=== PATIENT | female | born 1970 | race Caucasian/White ===

== ENCOUNTER → 2016-06-17 | Outpatient (CLI) | payer BC ==
[~2016-06-17] MED LIST: CYAN1000P SQ; MULT-120 PO; OMEP10CA PO; POTA75TA2 OR; POTA75TA2 PO; PRIL10CA PO; PRIN20TA2 PO; TAB-TAB PO; VITA100018 OR; VITA100020 IJ; VITA100064 PO
[2016-06-17 12:54] LABS: HEMATOCRIT 36.3 % (35.0-46.0); MEAN CELL VOLUME 84.2 FL (80.0-100.0); MEAN CORPUSCULAR HEMOGLOBIN 28.6 PG (27.0-34.0); MEAN CORPUSCULAR HGB CONC 33.9 % (32.0-36.0); PLATELET COUNT 274 TH/MM3 (150-450); RED BLOOD COUNT 4.31 MIL/MM3 (4.00-5.30); RED CELL DISTRIBUTION WIDTH 12.3 % (11.6-17.2); REVIEW FLAG FINAL; WHITE BLOOD COUNT 8.6 TH/MM3 (4.0-11.0)
[2016-06-17 12:55] LABS: BLOOD, URINE NEG (NEG); GLUCOSE,URINE NEG (NEG); KETONE, URINE NEG (NEG); NITRITE,URINE NEG (NEG)
[2016-06-17 13:01] LABS: METHOD OF COLLECTION CLEAN CATCH; URINE COLOR YELLOW (YELLW/STRAW)
[2016-06-17 13:02] LABS: COMMENT (UR) CULT NOT INDICATED; CULTURE IF INDICATED CULT NOT INDICATED; RBC, URINE 0-3 /hpf (0-3); SQUAMOUS EPITHELIAL CELL URINE 0-5 /hpf (0-5)
== END ==
LOC: PHPRE 12:05
PROVIDERS: ATTEND Obstetrics & Gynecology
DX: Z01.812 Encounter for preprocedural laboratory examination (principal); N92.1 Excessive and frequent menstruation with irregular cycle; N32.81 Overactive bladder
CPT/HCPCS: 36415; 81001; 85027

== ENCOUNTER 2016-06-22 06:23 | Inpatient (IN) | payer BC ==
[~2016-06-22] VITALS: Ht 165.1 cm; Wt 124.8 kg
[~2016-06-22 06:23] MED LIST changes: -POTA75TA2 OR; -PRIL10CA PO; -TAB-TAB PO; -VITA100018 OR; -VITA100020 IJ
[2016-06-22] MEDS ORDERED: BUPIVACAINE HCL PF 0.25% 30 ML VIAL ONE (07:03)
[2016-06-22] MEDS ORDERED: ESTROGENS CONJUGATED VAG CREA 15 APPL/30 GM TUBE ONE (07:03)
[2016-06-22] MEDS ORDERED: ceFAZolin INJ 1,000 MG VIAL ONE ×2 (07:22→09:05)
[2016-06-22 08:09] VITALS: PULSE 78; RESP 18; TEMP 98; O2SAT 98
[2016-06-22] MEDS ORDERED: MIDAZOLAM HCL 2 MG/2 ML VIAL ONE (09:04)
[2016-06-22] MEDS ORDERED: SODIUM CHLORIDE 0.9% INJ 50 ML ONE (09:05)
[2016-06-22] MEDS ORDERED: METOCLOPRAMIDE HCL 10 MG/2 ML VIAL ONE (09:05)
[2016-06-22] MEDS ORDERED: FAMOTIDINE 20 MG/2 ML VIAL ONE (09:05)
[2016-06-22] MEDS ORDERED: DEXAMETHASONE SOD PHOS 4 MG/ML VIAL ONE (09:05)
[2016-06-22] MEDS ORDERED: LACTATED RINGER'S 1000 ML INJ 1,000 ML ONE (09:20)
[2016-06-22] MEDS ORDERED: ACETAMINOPHEN 1000 MG/100 ML VIAL IV ONE (09:59)
[2016-06-22] MEDS ORDERED: PROPOFOL 200 MG/20 ML AMP IV ONE (10:29)
[2016-06-22] MEDS ORDERED: ONDANSETRON HCL 4 MG/2 ML VIAL IV PUSH ONE (10:29)
[2016-06-22] MEDS ORDERED: LACTATED RINGER'S 1000 ML INJ 2,000 ML IV ONE (10:29)
[2016-06-22] MEDS ORDERED: ePHEDrine/NS 25 MG/5 ML SYR IV ONE (10:29)
[2016-06-22] MEDS ORDERED: PHENYLEPH/NS 1000 MCG/10 ML SYR IV ONE (10:29)
[2016-06-22] MEDS ORDERED: NEOSTIGMINE 3 MG/3 ML SYR IV ONE (10:29)
[2016-06-22] MEDS ORDERED: SUGAMMADEX SODIUM 200 MG/2 ML VIAL IV PUSH ONE ×2 (12:14)
[2016-06-22] MEDS ORDERED: fentaNYL CITRATE 250 MCG/5 ML AMP ONE ×2 (12:27→12:28)
[2016-06-22] MEDS ORDERED: MORPHINE SULFATE 4 MG/ML INJ ONE (12:29)
[2016-06-22] MEDS ORDERED: SODIUM CHLORIDE 0.9% 20 ML VIAL ONE ×2 (12:52)
[2016-06-22 14:08] VITALS: PULSE 117
[2016-06-22] MEDS ORDERED: MORPHINE SULFATE 10 MG/ML INJ ONE (14:09)
--- NOTE | 2016-06-22 14:09 | RADHPO ---
EXAM DATE/TIME: 06/22/2016 13:54 [place] COMPARISON: No previous studies available for comparison. INDICATIONS : OR instrument count MEDICAL HISTORY : None. SURGICAL HISTORY : None. ENCOUNTER: Initial ACUITY: 1 day PAIN SCORE: Non-responsive. LOCATION: Bilateral Abdomen FINDINGS: Supine view of the abdomen was performed. The abdominal bowel gas pattern is normal. No abnormal ma sses, calcifications, or organomegaly is seen. No radiopaque instruments. However, there are raytech sponges or packing in the rectum or vagina. The osseous structures are unremarkable. CONCLUSION: 1. Raytech sponges/packing in the expected location of the rectal vault or vagina. 2. No radiopaque instruments. Nonobstructive bowel gas pattern. 3. Results were called to the OR at the time of this dictation. Erick Mccray MD on June 22, 2016 at 14:02 Board Certified Radiologist. This report was verified electronically.
[2016-06-22] MEDS ORDERED: KETOROLAC TROMETHAMINE 30 MG/ML (IVP) VIAL ONE (14:18)
[2016-06-22] MEDS ORDERED: *Lactated Ringer's INJ 1,000 ML ONE (14:20)
[2016-06-22] MEDS ORDERED: MORPHINE SULFATE 30 MG/30 ML PCA ONE (14:33)
[2016-06-22 15:00] VITALS: PULSE 96
[2016-06-22] MEDS ORDERED: NALOXONE HCL 0.4 MG/ML AMP IV PRN (15:15)
[2016-06-22] MEDS ORDERED: MORPHINE SULFATE 30 MG/30 ML PCA IV SCH (15:15)
[2016-06-22] MEDS ORDERED: diphenhydrAMINE HCL 25 MG CAP PO PRN (15:15)
[2016-06-22] MEDS ORDERED: DO NOT ADM ANY ANTICOAGULANT DRUGS PRN (15:30)
[2016-06-22] MEDS ORDERED: ONDANSETRON HCL 4 MG/2 ML VIAL IM PRN (15:45)
[2016-06-22] MEDS: LACTATED RINGER'S 1000 ML INJ 1,000 ML IV SCH ×2 (16:00→22:02)
[2016-06-22 16:05] VITALS: BP 141/68; PULSE 99; RESP 20; TEMP 97.7; O2SAT 97
[2016-06-22 20:00] VITALS: BP 120/67; PULSE 95; RESP 18; RESP 20; TEMP 97.7; O2SAT 94
[2016-06-22] MEDS: PCA - TOTAL MG MORPHINE DELIVERED PER SHIFT SCH (22:00)
[2016-06-22] MEDS: KETOROLAC TROMETHAMINE 30 MG/ML (IVP) VIAL IV PUSH SCH (22:02)
[2016-06-23] VITALS (7 sets, daily range): BP systolic 102–142; BP diastolic 54–86; PULSE 78–94; RESP 18–20; TEMP 96.5–98.5; O2SAT 91–95
[2016-06-23] MEDS: PCA - TOTAL MG MORPHINE DELIVERED PER SHIFT SCH (06:00)
[2016-06-23] MEDS: KETOROLAC TROMETHAMINE 30 MG/ML (IVP) VIAL IV PUSH SCH ×3 (06:33→21:33)
[2016-06-23 07:06] LABS: HEMATOCRIT 28.8 % (35.0-46.0); REVIEW FLAG FINAL
[2016-06-23 07:07] LABS: CHLORIDE 103 MEQ/L (98-107); POTASSIUM 3.7 MEQ/L (3.5-5.1); SODIUM (NA) 139 MEQ/L (136-145)
[2016-06-23 07:13] LABS: ANION GAP 7 MEQ/L (5-15); BICARBONATE 28.7 MEQ/L (21.0-32.0); BLOOD UREA NITROGEN 7 MG/DL (7-18)
[2016-06-23 07:16] LABS: ALT (GPT) 14 U/L (10-53); AST (GOT) 13 U/L (15-37); GLOMERULAR FILTRATION RATE 88 ML/MIN (>89)
[2016-06-23 07:18] LABS: TOTAL BILIRUBIN ADULT 0.5 MG/DL (0.2-1.0)
[2016-06-23 07:19] LABS: ALKALINE PHOSPHATASE 79 U/L (45-117)
[2016-06-23] MEDS: LACTATED RINGER'S 1000 ML INJ 1,000 ML IV SCH ×2 (11:15→19:42)
[2016-06-23] MEDS: oxyCODONE/ACETAMINOPHEN 7.5 MG/325 MG TAB PO PRN ×2 (14:14→18:24)
[2016-06-24] VITALS: BP 124/76; PULSE 85; RESP 20; TEMP 98.4; O2SAT 95
[2016-06-24] MEDS: KETOROLAC TROMETHAMINE 30 MG/ML (IVP) VIAL IV PUSH SCH (06:16)
[2016-06-24] MEDS: LACTATED RINGER'S 1000 ML INJ 1,000 ML IV SCH (07:15)
[2016-06-24 08:00] VITALS: BP 140/76; PULSE 77; RESP 16; TEMP 96.9; O2SAT 97
--- NOTE | 2016-06-24 09:42 | HHI.DS ---
Discharge Summary Admission Date Jun 22, 2016 at 16:15 Admitting Diagnosis CBC/BMP: 06/23/16 0640 06/23/16 0640 Significant Findings Laboratory Tests Test 06/23/16 06:40 Hemoglobin 9.6 GM/DL (11.6-15.3) Hematocrit 28.8 % (35.0-46.0) Estimat Glomerular Filtration 88 ML/MIN (>89) Rate Calcium Level 7.8 MG/DL (8.5-10.1) Aspartate Amino Transf 13 U/L (15-37) (AST/SGOT) Total Protein 5.8 GM/DL (6.4-8.2) Albumin 2.5 GM/DL (3.4-5.0) Pt Condition on Discharge: Good Discharge Disposition: Discharge Home Discharge Instructions DIET: Follow Instructions for: As Tolerated, No Restrictions Activities you can perform: Shower Only-No Bath, Pelvic Rest Activities to avoid: Driving for 24 hrs, Prolonged Standing, Strenuous Activity , Bathing, Sexual Activity Additional Information Patient has follow up appt for next week, prescriptions filled at home and contact information. Letty Zazueta MD Jun 24, 2016 09:42
--- NOTE | 2016-06-25 21:16 | MP ---
cc: EARLENE ROGERS MD DATE OF SURGERY 06/22/16 PREOPERATIVE DIAGNOSIS Menorrhagia, irregular periods, bilateral cystic ovarian masses and female stress urinary incontinence. POSTOPERATIVE DIAGNOSIS Menorrhagia, irregular periods, bilateral cystic ovarian masses and female stress urinary incontinence. OPERATION Laparoscopic supracervical hysterectomy and bilateral salpingo-oophorectomy converted to a minilaparotomy, transobturator tape placement and cystoscopy. SURGEON Mery Rogers MD ANESTHESIA General endotracheal COMPLICATIONS Pneumoperitoneum and incorrect instrument count ESTIMATED BLOOD LOSS 200 mL SPECIMENS Bilateral tubes and ovaries sent as separate specimens and the uterus not including the cervix. INDICATIONS This 46-year-old patient has been troubled with progressively irregular and heavy periods. She was considering endometrial ablation and, during workup, received an ultrasound showing bilateral ovarian cysts which were atypical in appearance being multiple and elongated on both sides. After further counseling, the patient determined it was in her best interest to pursue laparoscopic supracervical hysterectomy and removal of the adnexa bilaterally. As the surgery date approached, the patient also complained of increasing stress urinary incontinence and this was confirmed by exam and bladder diary and after further discussion, the patient requested that we add placement of transobturator tape with cystoscopy. FINDINGS At time of the procedure, the patient was found to have normal pelvic anatomy with no pelvic adhesions from previous surgery. the left ovary did have a cyst and there was also a pendulous necrotic appearing paratubal cysts on the patient's right. The patient had been planning surgical sterilization and we proceeded as planned. There was no evidence of endometriosis or adhesive disease. The remainder of the pelvis was normal to laparoscopic appearance. The patient has had dramatic shifts in her weight both up and down and it did result in a very redundant and patulous peritoneum. This produced problems as the case progressed because she developed pneumoperitoneum underneath the peritoneal layer and it became more and more of a visual and technical obstruction in the course of the case. Toward the end of the case, it was no longer possible to see adequately the visual field and we had to create a minilaparotomy for removal of the uterus. The tubes and ovaries had already been removed. The patient had normal-appearing bladder dome to cystoscopy. She did have patent ureteral orifices with visualized egress of urine bilaterally during cystoscopy. She had good closure of the bladder neck after placement of the transobturator tape and there was no evidence of perforation. PROCEDURE IN DETAIL The patient was taken to the operating room, placed supine on the operating room table. After general endotracheal anesthetic, she was prepped and draped in dorsolithotomy position with her arms tucked at each side and using yellow fin stirrups for good support of her legs. a Veress needle was inserted and a 12 mm incision in the umbilicus and 3.7 liters of CO2 were instilled without difficulty. The standard laparoscopic trocar was placed in the umbilicus using a 10-12 obturator. Then under direct visualization 5-mm ports were placed in the right and left lower quadrant. The patient sustained no incident with placement of these trocars, however, the laxity and patulous nature of her peritoneum allowed a pneumoperitoneum with the CO2 gas to collect progressively throughout the case, so the case was technically more obstructed as we progressed with the laparoscopic ports having to be replaced several times since they came out of the peritoneal cavity because of the pneumoperitoneum. Eventually it became difficult to adequately oxygenate the patient and minilaparotomy was performed. However, before that time the pelvic structures were inspected. The left fallopian tube was grasped and used to put traction on the ovary as the infundibulopelvic ligament was divided using the NovaSure device. The uterine tube and the uterosacral ligaments were also divided in the same way and the tube was from the broad ligament across the mesosalpinx with several bites using the harmonic scalpel. The tube and ovary were then put in an EndoCatch bag and drawn out through the umbilical incision without difficulty and intact. The same procedure was then carried out on the right. Then attention was turned to the hysterectomy portion and the round ligaments were divided bilaterally, again using the NovaSure device. The bladder flap was developed anteriorly and then starting at the severed uterosacral ligament and working down toward the cervix. The NovaSure device was used to separate the uterus from the broad ligament. On reaching the junction of the cervix and the uterus, I began to separate the cervix from the rest of the uterus using the drilling technique allowed by the NovaSure device. However, it was at this juncture that the visualization became difficult with the increasing pneumopericardium obscuring the view and also causing the laparoscopic trocars to slip into the pneumoperitoneum rather than remaining in the peritoneal cavity, therefore, after collaborating with anesthesia, the patient was brought into the supine position again for the minilaparotomy staying in the [facility]. An 8 cm skin incision was made with a #10 blade and subcutaneous tissues were divided with Bovie cautery. The fascia was incised elliptically. The subfascial plane was developed sharply in the midline. The rectus muscles were easily and the peritoneum was easily entered bluntly. The incision was extended taking care to avoid bowel and bladder. Then not using a retractor but only using packing, the junction of the cervix and the uterus was identified and the NovaSure device was used to continue severing the uterus from the cervix. This was then removed intact as a third specimen. The pedicles of the surgery up to that point were then inspected individually for hemostasis. There was a small amount of oozing on the cervical stump and a little bit near the site of the right uterine artery, but this was all easily controlled again using the NovaSure device and suctioned. This portion of the procedure then being complete, the minilaparotomy incision was closed with 0 Vicryl reapproximating the rectus muscles in the midline in [id number] fashion times two. The fascia was closed with an O PDS loop with the knot in the right lower quadrant. Subcutaneous tissues were reapproximated with 0 Vicryl interrupted. Skin edges were reapproximated with 4-0 Monocryl. Dermabond was applied as a dressing to this incision as well as the umbilical and lateral port incisions. Attention was then turned to the vagina. Using a weighted retractor, the urethra was palpated through the anterior vaginal wall. A plane was developed submucosally using saline for injection. A 3 cm incision was then made along the urethra and the submucosal plane was developed laterally out to the lateral anterior sulcus on each side. Then using the transobturator tape called Juan, the tape placement device was inserted through a 1 cm left groin incision made at the level of the urethra. The device was used to perforate the obturator fascia and was brought out by palpation into the left lateral sulcus submucosally. The sling was then threaded through this device as it was pulled back out through the groin. The same procedure was carried out on the patient's right. Then using the cystoscope, the bladder was inspected with no evidence of perforation or even trauma. Urine efflux was seen from both ureteral openings. The neck of the urethra had good apposition after adjusting the transobturator tape and the Tilley catheter was then replaced. The mucosal incision was closed with 3-0 Vicryl in running lock fashion and packing was placed in the vagina. The patient was transferred to the recovery room awake and breathing on her own. After two x-rays performed because of an extra clamp present on one of the four surgical trays used. There was no evidence of any intra-abdominal instruments or anything else, although the vaginal packing was noted. The patient received 2 grams of Ancef intraoperatively and she will be leaving tomorrow after staying overnight for placement of Tilley catheter and pain control. MD DEEPALI Alexis/ /3:11 PM /8:48 PM
== END 2016-06-24 11:40 | disposition home or self-care (01) | DRG 742 ==
LOC: PHSDC 06:23 → PH3A 13:58 → OBSVTOIN 16:15
PROVIDERS: ADMIT Obstetrics & Gynecology; ATTEND Obstetrics & Gynecology
PROC: 0UT70ZZ Resection of Bilateral Fallopian Tubes, Open Approach (ICD-10-PCS; 2016-06-22)
PROC: 0UT20ZZ Resection of Bilateral Ovaries, Open Approach (ICD-10-PCS; 2016-06-22)
PROC: 0TSC0ZZ Reposition Bladder Neck, Open Approach (ICD-10-PCS; 2016-06-22)
PROC: 0TJB8ZZ Inspection of Bladder, Via Natural or Artificial Opening Endoscopic (ICD-10-PCS; 2016-06-22)
PROC: 0UT90ZZ Resection of Uterus, Open Approach (ICD-10-PCS; principal; 2016-06-22 09:27)
PROC: 0UJD4ZZ Inspection of Uterus and Cervix, Percutaneous Endoscopic Approach (ICD-10-PCS; 2016-06-22 09:27)
DX: D25.9 Leiomyoma of uterus, unspecified (principal); Z68.42 Body mass index [BMI] 45.0-49.9, adult; E66.01 Morbid (severe) obesity due to excess calories; N32.81 Overactive bladder; N83.02 Follicular cyst of left ovary; N83.8 Other noninflammatory disorders of ovary, fallopian tube and broad ligament; N39.3 Stress incontinence (female) (male); N92.0 Excessive and frequent menstruation with regular cycle; N83.01 Follicular cyst of right ovary; L90.0 Lichen sclerosus et atrophicus; Z87.891 Personal history of nicotine dependence; Z98.84 Bariatric surgery status
CPT/HCPCS: 36415; 74000; 80053; 85014; 85018; 86850; 86900; 86901; 86920; 88307; C1771; J0131; J0690; J1100; J1885; J2250; J2270; J2370; J2405; J2710; J2765; J3010; J7120